=== PATIENT | female | born 1995 | race Caucasian/White ===

== ENCOUNTER 2018-10-15 09:23 | Emergency (ER) | payer MEDICAID ==
[2018-10-15 09:32] VITALS: RESP 20; BMI 24.7
[2018-10-15 11:05] LABS: SQUAMOUS EPITHIAL 3 /hpf (0-5); URINE BILIRUBIN NEGATIVE (NEGATIVE); URINE BLOOD NEGATIVE (NEGATIVE); URINE CLARITY CLEAR (Clear); URINE COLOR STRAW (YELLOW); URINE GLUCOSE (UA) NEG (NEGATIVE); URINE LEUKOCYTE ESTERASE NEG Leu/uL (Negative); URINE PROTEIN NEGATIVE (NEGATIVE); URINE UROBILINOGEN 0.2-1.0 mg/dL (0.2-1.0)
[2018-10-15 11:11] LABS: BASO % 0.4 % (0.0-2.0); EOS % 0.7 % (0.0-4.0); HEMOGLOBIN 11.7 g/dL (12.0-16.0); LYMPH # 1.3 K/uL (1.0-4.3); LYMPH % 30.1 % (20.0-40.0); MEAN CELL VOLUME 93.8 fl (81.0-99.0); MEAN CORPUSCULAR HEMOGLOBIN 31.4 pg (27.0-31.0); MEAN CORPUSCULAR HGB CONC 33.4 g/dL (33.0-37.0); MEAN PLATELET VOLUME 9.1 fl (7.2-11.7); MONO # 0.4 K/uL (0.0-0.8); MONO % 9.5 % (0.0-10.0); NEUT # 2.5 K/uL (1.8-7.0); NEUT % 59.3 % (50.0-75.0); NRBC % 0.1 % (0.0-0.0); RBC 3.72 Mil/uL (3.80-5.20); RED CELL DISTRIBUTION WIDTH 12.8 % (11.5-14.5); WHITE BLOOD COUNT 4.3 K/uL (4.8-10.8)
--- NOTE | 2018-10-15 11:18 | ED PDOC ---
HPI: General Adult Time Seen by Provider: 10/15/18 09:35 Chief Complaint (Nursing): Female Genitourinary Chief Complaint (Provider): Female Genitourinary History Per: Patient History/Exam Limitations: no limitations Onset/Duration Of Symptoms: Days (x2) Additional Complaint(s): Patient is a 23 y/o female with G3:P2 who presents to the ED for repeat labs and US. Patient was initially seen at [facility] two days ago for abdominal pain and a positive test. At that time patient had a normal H&H, a BETA Hcg level at 297. Patient was sent for US which was suspicious for a left-sided ectopic . ED discussed the findings with OBGYN who instructed the patient to come to the [facility] ED for repeat BETA and US in 2 days. Patient complains of minimal left-sided abdominal pain. Patient denies vaginal bleeding. Of note, the patient's LMP was on 09/04/2018. PCP: None Provided Past Medical History Reviewed: Historical Data, Nursing Documentation, Vital Signs Vital Signs: Last Vital Signs Temp 98.4 F 10/15/18 09:31 Pulse 106 H 10/15/18 09:31 Resp 20 10/15/18 09:31 BP 108/61 10/15/18 09:31 Pulse Ox 97 10/15/18 09:31 - Medical History PMH: No Chronic Diseases - Surgical History Surgical History: No Surg Hx - Family History Family History: States: No Known Family Hx - Home Medications Home Medications: Ambulatory Orders Medication Instructions Recorded No Known Home Med 10/12/18 - Allergies Allergies/Adverse Reactions: Allergies Allergy/AdvReac Type Severity Reaction Status Date / Time No Known Allergies Allergy Verified 10/15/18 09:34 Review of Systems ROS Statement: Except As Marked, All Systems Reviewed And Found Negative Gastrointestinal: Positive for: Abdominal Pain (minimal, left-sided) Genitourinary Female: Negative for: Vaginal Bleeding Physical Exam - Reviewed Nursing Documentation Reviewed: Yes Vital Signs Reviewed: Yes - Physical Exam Appears: Positive for: No Acute Distress Head Exam: Positive for: ATRAUMATIC, NORMAL INSPECTION, NORMOCEPHALIC Skin: Positive for: Normal Color, Warm, DRY Eye Exam: Positive for: EOMI, Normal appearance, PERRL Neck: Positive for: Normal, Painless ROM, Supple Cardiovascular/Chest: Positive for: Regular Rate, Rhythm. Negative for: Murmur Respiratory: Positive for: Normal Breath Sounds. Negative for: Respiratory Distress Gastrointestinal/Abdominal: Positive for: Soft, Tenderness (minimal left pelvis). Negative for: Guarding, Rebound Back: Positive for: Normal Inspection. Negative for: L CVA Tenderness, R CVA Tenderness, Vertebral Tenderness Extremity: Positive for: Normal ROM. Negative for: Pedal Edema, Deformity Neurological/Psych: Positive for: Alert, Oriented (x3) - Laboratory Results Result Diagrams: 10/15/18 10:23 10/15/18 10:23 - ECG O2 Sat by Pulse Oximetry: 97 (RA) Pulse Ox Interpretation: Normal Medical Decision Making Medical Decision Making: Time: 1023 Impression: Threatened vs Ectopic Plan: Type and Screen Beta-HCG, Quantitative CMP CBC UA Transvaginal [US] Time: 1205 FINDINGS: UTERUS: Measures 8.1 x 3.8 x 5.7 cm. Normal in size and appearance. No evidence of intrauterine gestation. ENDOMETRIUM: Measures 9 mm in diameter. 9 x 8 x 7 mm echogenic structure within the endometrial canal, possibly representing a polyp. CERVIX: No cervical abnormality identified. RIGHT OVARY: Measures 3.3 x 1.5 x 2.8 cm. No solid mass. Normal flow. LEFT OVARY: Measures 3.5 x 1.9 x 2.8 cm. Corpus luteum measuring 1.3 x 0.9 x 1.5 cm. Normal flow. FREE FLUID: No significant free fluid noted. OTHER FINDINGS: None. IMPRESSION: 9 x 8 x 7 mm echogenic structure within the endometrial canal which might represent endometrial polyp. Sonohysterography can be obtained for further evaluation as clinically warranted. No evidence of intrauterine gestation. Findings may represent early normal/abnormal with ectopic not excluded. Close clinical follow-up with serial pelvic sonography and serum beta HCG levels recommended. 1440: Case discussed with Dr. Banda sourcing consultant front office medical assistant, who evaluated pt. in ED and reviewed pt.'s current US as well as official read from US 10/13/18, cleared for d/c home with strict ectopic precautions. Pt. given ob referrals and she was instructed to return to this ED in 2 days for repeat beta/US. Pt. comfortable with plan. Vitals and labs stable. Discharge exam, abd. soft/nt. Scribe Attestation: Documented by Mark Bernal, acting as a scribe for Neha Brown PA-C. Provider Scribe Attestation: All medical record entries made by the Scribe were at my direction and personally dictated by me. I have reviewed the chart and agree that the record accurately reflects my personal performance of the history, physical exam, medical decision making, and the department course for this patient. I have also personally directed, reviewed, and agree with the discharge instructions and disposition. Disposition - Clinical Impression Clinical Impression: Threatened - Patient ED Disposition Is Patient to be Admitted: No - Disposition Referrals: Anthony Aguilar MD [Staff Provider] - Disposition: Routine/Home Disposition Time: 15:09 Condition: STABLE Additional Instructions: return to this ED in 2 days for repeat beta quant and US. return to ED sooner if increased pain, bleeding or other concerns. Instructions: Threatened Miscarriage (DC) Forms: [employer] (Romanian)
[2018-10-15 11:19] LABS: ALB/GLOB RATIO 1.3 (1.0-2.1); ALBUMIN 4.2 g/dL (3.5-5.0); ALT/SGPT 13 U/L (9-52); AST/SGOT 17 U/L (14-36); BLOOD UREA NITROGEN 7 mg/dl (7-17); CALCIUM 9.3 mg/dL (8.4-10.2); GFR NON-AFRICAN AMERICAN > 60
--- NOTE | 2018-10-15 12:09 | US ---
Date of service: 10/15/2018 HISTORY: r/o ectopic Serum beta HCG level 1139.4 LMP 09/04/2018 COMPARISON: None available. TECHNIQUE: Grayscale, color Doppler and spectral evaluation the pelvis performed transvaginally FINDINGS: UTERUS: Measures 8.1 x 3.8 x 5.7 cm. Normal in size and appearance. No evidence of intrauterine gestation. ENDOMETRIUM: Measures 9 mm in diameter. 9 x 8 x 7 mm echogenic structure within the endometrial canal, possibly representing a polyp. CERVIX: No cervical abnormality identified. RIGHT OVARY: Measures 3.3 x 1.5 x 2.8 cm. No solid mass. Normal flow. LEFT OVARY: Measures 3.5 x 1.9 x 2.8 cm. Corpus luteum measuring 1.3 x 0.9 x 1.5 cm. Normal flow. FREE FLUID: No significant free fluid noted. OTHER FINDINGS: None. IMPRESSION: 9 x 8 x 7 mm echogenic structure within the endometrial canal which might represent endometrial polyp. Sonohysterography can be obtained for further evaluation as clinically warranted. No evidence of intrauterine gestation. Findings may represent early normal/abnormal with ectopic not excluded. Close clinical follow-up with serial pelvic sonography and serum beta HCG levels recommended.
--- NOTE | 2018-10-15 14:53 | CP.PCM.CON ---
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 Pt was recently seen in [place] 10/13/18 due to c/o LLQ pain with 5 positive UPT's, at that time there was a prelim impression of possible ectopic in cul de sac with moderate free pelvic fluid, B HCG on 10/13/18 was 297.91, pt was sent home due to no bleeding and stable vital signs and it was recommended pt to follow up in 48 hours to repeat b hcg and Ultrasound. Pt reports mild LLQ pain without vaginal bleeding. 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: 1NSVD 2013, 1 C section 2016 Ovarian cyst s/p ovarian cystectomy 2014, Denies STI's, LMP 09/04/18, Menarche 11, Regular periods Q 5-6 days, Pmhx: Denies Meds: PNV Allergies: NKDA Surg Hx: ovarian cystectomy 2014, C section 2016 Fhx: Denies Social Hx: Denies tobacco, alcohol, or drug use Review of Systems - Constitutional Constitutional: Fever - Gastrointestinal Gastrointestinal: Abdominal Pain (LLQ) - Reproductive: Female Additional comments: No vaginal bleeding Past Patient History - Past Social History Smoking Status: Never Smoked Alcohol: None Drugs: Denies - CARDIAC Hx Cardiac Disorders: No - GENITOURINARY/GYNECOLOGICAL Hx Genitourinary Disorders: Yes Hx Urinary Tract Infection: Yes Other/Comment: ovarian cyst - 2010 - PSYCHIATRIC Hx Psychophysiologic Disorder: No Hx Substance Use: No - SURGICAL HISTORY Other/Comment: ovarian cyst removal 2010 Meds Allergies/Adverse Reactions: Allergies Allergy/AdvReac Type Severity Reaction Status Date / Time No Known Allergies Allergy Verified 10/15/18 09:34 Physical Exam - Constitutional Appears: Non-toxic, No Acute Distress - Head Exam Head Exam: ATRAUMATIC, NORMAL INSPECTION, NORMOCEPHALIC - Eye Exam Eye Exam: EOMI, Normal appearance - ENT Exam ENT Exam: Mucous Membranes Moist - Respiratory Exam Respiratory Exam: Clear to Auscultation Bilateral. absent: Rales, Rhonchi, Wheezes - Cardiovascular Exam Cardiovascular Exam: RRR, +S1, +S2 - GI/Abdominal Exam GI & Abdominal Exam: Normal Bowel Sounds, Soft. absent: Distended, Guarding, Rebound, Rigid, Tenderness - Extremities Exam Extremities exam: Positive for: normal inspection - Neurological Exam Neurological exam: Alert, Oriented x3 - Psychiatric Exam Psychiatric exam: Normal Mood Results - Vital Signs Recent Vital Signs: Last Vital Signs Temp 98.4 F 10/15/18 09:31 Pulse 106 H 10/15/18 09:31 Resp 20 10/15/18 09:31 BP 108/61 10/15/18 09:31 Pulse Ox 97 10/15/18 12:22 - Labs Result Diagrams: 10/15/18 10:23 10/15/18 10:23 Labs: Laboratory Results - last 24 hr 10/15/18 10/15/18 10/15/18 10:23 10:23 10:23 WBC 4.3 L RBC 3.72 L Hgb 11.7 L Hct 34.9 MCV 93.8 MCH 31.4 H MCHC 33.4 RDW 12.8 Plt Count 188 MPV 9.1 Neut % (Auto) 59.3 Lymph % (Auto) 30.1 [place] % (Auto) 9.5 Eos % (Auto) 0.7 Baso % (Auto) 0.4 Neut # (Auto) 2.5 Lymph # (Auto) 1.3 [place] # (Auto) 0.4 Eos # (Auto) 0.0 Baso # (Auto) 0.0 Sodium 138 Potassium 3.6 Chloride 106 Carbon Dioxide 20 L Anion Gap 16 BUN 7 Creatinine 0.5 L Est GFR ( Amer) > 60 Est GFR (Non-Af Amer) > 60 Random Glucose 102 Calcium 9.3 Total Bilirubin 0.4 AST 17 ALT 13 Alkaline Phosphatase 49 Total Protein 7.5 Albumin 4.2 Globulin 3.2 Albumin/Globulin Ratio 1.3 Beta HCG, Quant 1139.40 Urine Color Straw Urine Clarity Clear Urine pH 7.0 Ur Specific [place] 1.005 Urine Protein Negative Urine Glucose (UA) Neg Urine Ketones Negative Urine Blood Negative Urine Nitrate Negative Urine Bilirubin Negative Urine Urobilinogen 0.2-1.0 Ur Leukocyte Esterase Neg Urine RBC (Auto) 1 Urine Microscopic WBC 1 Ur Squamous Epith Cells 3 Blood Type Antibody Screen BBK History Checked 10/15/18 10:30 WBC RBC Hgb Hct MCV MCH MCHC RDW Plt Count MPV Neut % (Auto) Lymph % (Auto) [place] % (Auto) Eos % (Auto) Baso % (Auto) Neut # (Auto) Lymph # (Auto) [place] # (Auto) Eos # (Auto) Baso # (Auto) Sodium Potassium Chloride Carbon Dioxide Anion Gap BUN Creatinine Est GFR ( Amer) Est GFR (Non-Af Amer) Random Glucose Calcium Total Bilirubin AST ALT Alkaline Phosphatase Total Protein Albumin Globulin Albumin/Globulin Ratio Beta HCG, Quant Urine Color Urine Clarity Urine pH Ur Specific [place] Urine Protein Urine Glucose (UA) Urine Ketones Urine Blood Urine Nitrate Urine Bilirubin Urine Urobilinogen Ur Leukocyte Esterase Urine RBC (Auto) Urine Microscopic WBC Ur Squamous Epith Cells Blood Type O POSITIVE Antibody Screen Negative BBK History Checked No verified bt Assessment & Plan - Assessment and Plan (Free Text) Assessment: Pt is a 23 yo here due to repeat B HCG and TVUS from LLQ pain and Positive UPT Early with mild LLQ Abdominal Pain UPT + 10/13/18 B HCG 297.91, repeat B HCG today 1139.4 (rising) H&H 11.7/34.9 (stable) BP 124/78, HR 78, Afebrile TVUS: [id number] echogenic structure in endometrial canal possible polyp, sonohysterography can be obtained for further eval, No evidence of intrauterine gestation. Findings may represent early normal/abnormal with ectopic not excluded. Close clinical follow up with serial pelvic U/S and Serum B HCG levels recommended Pt to follow up with Dr. Aguilar or Dr. Quiles in 48hrs, gave patient office phone number to call Case reviewed and discussed with Dr. Veronika Jackson PGY1 - Date & Time Date: 10/15/18 Time: 15:59 <Melinda Banda - Last Filed: 10/15/18 16:20> Results - Vital Signs Recent Vital Signs: Last Vital Signs Temp 97.6 F 10/15/18 15:43 Pulse 78 10/15/18 15:43 Resp 20 10/15/18 15:43 BP 124/78 10/15/18 15:43 Pulse Ox 98 10/15/18 15:43 - Labs Result Diagrams: 10/15/18 10:23 10/15/18 10:23 Labs: Laboratory Results - last 24 hr 10/15/18 10/15/18 10/15/18 10:23 10:23 10:23 WBC 4.3 L RBC 3.72 L Hgb 11.7 L Hct 34.9 MCV 93.8 MCH 31.4 H MCHC 33.4 RDW 12.8 Plt Count 188 MPV 9.1 Neut % (Auto) 59.3 Lymph % (Auto) 30.1 [place] % (Auto) 9.5 Eos % (Auto) 0.7 Baso % (Auto) 0.4 Neut # (Auto) 2.5 Lymph # (Auto) 1.3 [place] # (Auto) 0.4 Eos # (Auto) 0.0 Baso # (Auto) 0.0 Sodium 138 Potassium 3.6 Chloride 106 Carbon Dioxide 20 L Anion Gap 16 BUN 7 Creatinine 0.5 L Est GFR ( Amer) > 60 Est GFR (Non-Af Amer) > 60 Random Glucose 102 Calcium 9.3 Total Bilirubin 0.4 AST 17 ALT 13 Alkaline Phosphatase 49 Total Protein 7.5 Albumin 4.2 Globulin 3.2 Albumin/Globulin Ratio 1.3 Beta HCG, Quant 1139.40 Urine Color Straw Urine Clarity Clear Urine pH 7.0 Ur Specific [place] 1.005 Urine Protein Negative Urine Glucose (UA) Neg Urine Ketones Negative Urine Blood Negative Urine Nitrate Negative Urine Bilirubin Negative Urine Urobilinogen 0.2-1.0 Ur Leukocyte Esterase Neg Urine RBC (Auto) 1 Urine Microscopic WBC 1 Ur Squamous Epith Cells 3 Blood Type Antibody Screen BBK History Checked 10/15/18 10:30 WBC RBC Hgb Hct MCV MCH MCHC RDW Plt Count MPV Neut % (Auto) Lymph % (Auto) [place] % (Auto) Eos % (Auto) Baso % (Auto) Neut # (Auto) Lymph # (Auto) [place] # (Auto) Eos # (Auto) Baso # (Auto) Sodium Potassium Chloride Carbon Dioxide Anion Gap BUN Creatinine Est GFR ( Amer) Est GFR (Non-Af Amer) Random Glucose Calcium Total Bilirubin AST ALT Alkaline Phosphatase Total Protein Albumin Globulin Albumin/Globulin Ratio Beta HCG, Quant Urine Color Urine Clarity Urine pH Ur Specific [place] Urine Protein Urine Glucose (UA) Urine Ketones Urine Blood Urine Nitrate Urine Bilirubin Urine Urobilinogen Ur Leukocyte Esterase Urine RBC (Auto) Urine Microscopic WBC Ur Squamous Epith Cells Blood Type O POSITIVE Antibody Screen Negative BBK History Checked No verified bt Assessment & Plan - Assessment and Plan (Free Text) Assessment: OB Hospitalist Addendum: Pt seen and examined. Agree w/ above except that pt was told to return to the ED in 48 hours and given names of OB in [place] for OB f/u. This is a 23 yo w/ LMP 09/04/2018, (5+5 wks GA) w/ LLQ pain w/ HCG 1139 and no evidence of IUP on u/s. On exam, pt appears well, in NAD and abdominal exam is benign. Pt told to f/u in ED in 48 hours and given names of Drs. Aguilar and Kb for OB f/u in [place]. (ES)
[2018-10-15 15:44] VITALS: BP 124/78; PULSE 78; TEMP 97.6; O2SAT 98
== END 2018-10-15 15:44 | disposition home or self-care (01) ==
LOC: H.ER 09:23
DX: O20.0 Threatened abortion (principal)

== ENCOUNTER 2018-10-17 13:09 | Emergency (ER) | payer MEDICAID ==
[2018-10-17 13:09] VITALS: BMI 24.7
[2018-10-17 13:38] VITALS: BP 107/71; PULSE 81; RESP 16; TEMP 98.3; O2SAT 100
--- NOTE | 2018-10-17 14:42 | ED PDOC ---
HPI: General Adult Time Seen by Provider: 10/17/18 13:52 Chief Complaint (Nursing): Abnormal Labs Chief Complaint (Provider): Repeat Labs/ US History Per: Patient History/Exam Limitations: no limitations Onset/Duration Of Symptoms: Days (x4) Current Symptoms Are (Timing): Still Present Additional Complaint(s): 23 year old female presents to the ED for repeat labs and US. Patient was initially seen at [facility] four days ago for abdominal pain and a positive pregna ncy test. At that time patient had a normal H&H, a Beta-HCG level at 297. Patient was sent for US which was suspicious for a left-sided ectopic . ED discussed the findings with OBGYN who instructed the patient to come to the [facility] ED for repeat BETA and US in 2 days. At that time, patient had Beta-HCG of 1139.40 and US which could not rule out an ectopic . She was advised to come back today for repeat Beta-HCG and US. Patient complains of mild pelvic cramping, mostly to the middle. Otherwise, denies vaginal bleeding, vaginal discharge, urinary symptoms, nausea, vomiting, and fever. [facility] 09/04/2018. PMD: none provided Past Medical History Reviewed: Historical Data, Nursing Documentation, Vital Signs Vital Signs: Last Vital Signs Temp 98.3 F 10/17/18 13:37 Pulse 81 10/17/18 13:37 Resp 16 10/17/18 13:37 BP 107/71 10/17/18 13:37 Pulse Ox 100 10/17/18 13:37 - Medical History PMH: No Chronic Diseases - Surgical History Surgical History: No Surg Hx - Family History Family History: States: Unknown Family Hx - Social History Current smoker - smoking cessation education provided: No Alcohol: None Drugs: Denies - Home Medications Home Medications: Ambulatory Orders Medication Instructions Recorded No Known Home Med 10/12/18 - Allergies Allergies/Adverse Reactions: Allergies Allergy/AdvReac Type Severity Reaction Status Date / Time No Known Allergies Allergy Verified 10/17/18 13:37 Review of Systems ROS Statement: Except As Marked, All Systems Reviewed And Found Negative Constitutional: Negative for: Fever Gastrointestinal: Negative for: Nausea, Vomiting Genitourinary Female: Positive for: Pelvic Pain (cramping, mostly to middle). Negative for: Dysuria, Frequency, Incontinence, Hematuria, Vaginal Discharge, Vaginal Bleeding Physical Exam - Reviewed Nursing Documentation Reviewed: Yes Vital Signs Reviewed: Yes - Physical Exam Appears: Positive for: No Acute Distress Head Exam: Positive for: ATRAUMATIC, NORMOCEPHALIC Skin: Positive for: Normal Color, Warm Eye Exam: Positive for: Normal appearance Neck: Positive for: Normal, Painless ROM, Supple Cardiovascular/Chest: Positive for: Regular Rate, Rhythm Respiratory: Positive for: Normal Breath Sounds. Negative for: Respiratory Distress Gastrointestinal/Abdominal: Positive for: Normal Exam, Soft. Negative for: Tenderness (to abomen or pelvis) Back: Positive for: Normal Inspection Extremity: Positive for: Normal ROM (all extremities) Neurological/Psych: Positive for: Awake, Alert, Oriented (x3) - Laboratory Results Result Diagrams: 10/17/18 14:00 - ECG O2 Sat by Pulse Oximetry: 100 (RA) Pulse Ox Interpretation: Normal Medical Decision Making Medical Decision Making: Time: 1350 Initial Impression: repeat labs / US Initial Plan: --Beta-HCG quant --OB transvag US --After results come back, will place consult to core shaper assistant commissioner 1554 US FINDINGS: UTERUS: Measures 8.1 x 4.3 x 3.9 cm. Uterus is mildly enlarged, anteverted heterogeneous endometrial pattern. No suspicious myometrial lesion appreciable. ENDOMETRIUM: Measures 19.1 mm in diameter. Overall endometrium is heterogeneous without definite gestational sac within the endometrial cavity. A tiny echo poor focus of only 1.5 mm is appreciated within the endometrium which is nonspecific. CERVIX: No cervical abnormality identified. RIGHT OVARY: Measures 2.9 x 2.1 x 1.5 cm. A small hyperechoic area measures 0.5 x 0.6 x 0.6 cm and is nonspecific in appearance could reflect a complex cyst or small focal hemorrhage. Normal flow. LEFT OVARY: Measures 3.6 x 2.9 x 2.1 cm with complex cyst or solid nodule measuring 2.2 x 1.3 x 2.2 cm. There is a limited amount of peritoneal fluid with debris identified in the left adnexal compartment as well as a thin rimmed cystic structure measure 1.1 x 0.9 x 1.0 cm of uncertain origin. This may represent a cyst tiny paraovarian cyst but no pole yolk sac is seen associated. Normal flow. OTHER FINDINGS: None. IMPRESSION: Abnormal thickened endometrium is appreciate which is heterogeneous with a 1.4 mm echo lucency potentially reflective of a cyst. A definitive gestational sac or intrauterine gestation is not identified. Ectopic gestation not proven or excluded consider possible early intrauterine gestation not currently visible sonographically. Possible sub cm hemorrhagic cyst central right ovary with a complex cyst or nodule 2.2 cm at the left ovary. 1.1 cm possible left paraovarian cyst. Clinical follow-up by serial beta HCG analysis is advised as well as one-week follow-up transvaginal pelvic ultrasonography. 1615 Beta-HCG quant at 3425.10. US shows thickened endometrium from 9mm to 19.1mm. Case discussed with Dr. Winn who recommends placing obgyn consult. [address] Pittman who recommends doing a pelvic exam and ordering LFTs. Discussed findings and plan with patient who is agreeable. 1650 Pelvic exam performed by me with jonathan Woody. Patient tolerated examination well. Findings: cervical os closed; moderate amount of non-odorous discharge noted; non-erythematous; non-tender mass felt to left side, right side unremarkable; no cervical tenderness. Pending LFTs before calling back Dr. Pittman. 1700 OB resident is at bedside to evaluate patient with Dr. Pittman. 1730 Dr. Pittman spoke to patient and informed her that this is most likely an ectopic , and advises to take methotrexate. Patient became very upset and is refusing the methotrexate, stating she wants to go home and think about it. Patient educated on the risks of leaving AMA by Dr. Pittman and myself, including po tential internal bleeding and possible . Patient states she understands and still wishes to leave. Discussed return parameters such as increased pelvic pain and vaginal bleeding. She verbalized understanding again, and signed out AMA with Annalise ALEXIS as witness. Scribe Attestation: Documented by Mary Jane Guadalupe, acting as a scribe for Pao Weaver APN. Provider Scribe Attestation: All medical record entries made by the Scribe were at my direction and personally dictated by me. I have reviewed the chart and agree that the record accurately reflects my personal performance of the history, physical exam, medical decision making, and the department course for this patient. I have also personally directed, reviewed, and agree with the discharge instructions and disposition. Disposition - Clinical Impression Clinical Impression: Threatened - Disposition Disposition: Against Medical Advice Disposition Time: 17:33 Condition: STABLE Additional Instructions: Return to ED immediately if pelvic pain increases or develop vaginal bleeding. Instructions: Threatened Miscarriage Print Language: CAMEROONIAN - POA Present On Arrival: None
--- NOTE | 2018-10-17 15:59 | US ---
Date of service: 10/17/2018 HISTORY: r/o etopic preg COMPARISON: None available. TECHNIQUE: Transabdominal and transvaginal pelvic ultrasound was performed with longitudinal and transverse images submitted for interpretation. FINDINGS: UTERUS: Measures 8.1 x 4.3 x 3.9 cm. Uterus is mildly enlarged, anteverted heterogeneous endometrial pattern. No suspicious myometrial lesion appreciable. ENDOMETRIUM: Measures 19.1 mm in diameter. Overall endometrium is heterogeneous without definite gestational sac within the endometrial cavity. A tiny echo poor focus of only 1.5 mm is appreciated within the endometrium which is nonspecific. CERVIX: No cervical abnormality identified. RIGHT OVARY: Measures 2.9 x 2.1 x 1.5 cm. A small hyperechoic area measures 0.5 x 0.6 x 0.6 cm and is nonspecific in appearance could reflect a complex cyst or small focal hemorrhage. Normal flow. LEFT OVARY: Measures 3.6 x 2.9 x 2.1 cm with complex cyst or solid nodule measuring 2.2 x 1.3 x 2.2 cm. There is a limited amount of peritoneal fluid with debris identified in the left adnexal compartment as well as a thin rimmed cystic structure measure 1.1 x 0.9 x 1.0 cm of uncertain origin. This may represent a cyst tiny paraovarian cyst but no pole yolk sac is seen associated. Normal flow. OTHER FINDINGS: None. IMPRESSION: Abnormal thickened endometrium is appreciate which is heterogeneous with a 1.4 mm echo lucency potentially reflective of a cyst. A definitive gestational sac or intrauterine gestation is not identified. Ectopic gestation not proven or excluded consider possible early intrauterine gestation not currently visible sonographically. Possible sub cm hemorrhagic cyst central right ovary with a complex cyst or nodule 2.2 cm at the left ovary. 1.1 cm possible left paraovarian cyst. Clinical follow-up by serial beta HCG analysis is advised as well as one-week follow-up transvaginal pelvic ultrasonography.
[2018-10-17 17:42] LABS: ALB/GLOB RATIO 1.3 (1.0-2.1); ALBUMIN 4.5 g/dL (3.5-5.0); ALT/SGPT 23 U/L (9-52); AST/SGOT 38 U/L (14-36); BLOOD UREA NITROGEN 8 mg/dl (7-17); CALCIUM 9.6 mg/dL (8.4-10.2); GFR NON-AFRICAN AMERICAN > 60
--- NOTE | 2018-10-17 17:49 | CP.PCM.CON ---
History of Present Illness - History of Present Illness History of Present Illness: 23 YO female presenting to the ED to repeat labs and Transvaginal US after she was found to have an elevation of Beta-HCG with negative IUP on a transvaginal US 2 days ago. Patient reports she was initially seen at [facility] on 10/13/18 with c/o LLQ mild abdominal pain and a positive urine T, at that time her Beta-HCG level was 297 and vaginal US did not show a IUP and patient was sent home with instructions to follow up repeat beta-HCG in 48 hours and repeat US. Patient returned for repeat labs and evaluation to [facility] on 10/15/18 (2 days ago) and her Beta-HCG was 1139.40 rising from previous level with no evidence of IUP on US and ectopic could not be ruled out. Patient was instructed to f/u today with repeat Beta-HCG and transvaginal US. Patient today complains of occasional mild pelvic crampy pain to the LLQ, states that compared to 4 days ago her pain is almost resolved, she only endorses feeling some mild nausea. Patient otherwise denies vaginal bleeding, discharge, vomiting, dysuria, fever, palpitations, or any other acute medical complaint at present. 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 hx: 1NSVD 2013, 1 C section 2016 Ovarian cyst s/p ovarian cystectomy 2014, Denies STI's, LMP 09/04/18, Menarche 11, Regular periods Q 5-6 days PMD: not provided PMHx: Denies FMHx: Denies Meds: None Allergies: NKDA Surg Hx: ovarian cystectomy 2014, C section 2016 Social Hx: Denies tobacco, alcohol, or drug use Past Patient History - Past Social History Alcohol: None Drugs: Denies - CARDIAC Hx Cardiac Disorders: No - GENITOURINARY/GYNECOLOGICAL Hx Genitourinary Disorders: Yes Hx Urinary Tract Infection: Yes Other/Comment: ovarian cyst - 2010 - PSYCHIATRIC Hx Psychophysiologic Disorder: No Hx Substance Use: No - SURGICAL HISTORY Other/Comment: ovarian cyst removal 2011 Meds Allergies/Adverse Reactions: Allergies Allergy/AdvReac Type Severity Reaction Status Date / Time No Known Allergies Allergy Verified 10/17/18 13:37 Physical Exam - Head Exam Head Exam: NORMOCEPHALIC - Eye Exam Eye Exam: EOMI - ENT Exam ENT Exam: Mucous Membranes Moist - Respiratory Exam Respiratory Exam: Clear to Auscultation Bilateral - Cardiovascular Exam Cardiovascular Exam: REGULAR RHYTHM, +S1, +S2 - GI/Abdominal Exam GI & Abdominal Exam: Soft. absent: Mass, Tenderness - Exam Additional comments: Pelvic exam declined by patient at this time. - Neurological Exam Neurological exam: Alert - Skin Skin Exam: Normal Color, Warm Results - Vital Signs Recent Vital Signs: Last Vital Signs Temp 98.3 F 10/17/18 13:37 Pulse 81 10/17/18 13:37 Resp 16 10/17/18 13:37 BP 107/71 10/17/18 13:37 Pulse Ox 100 10/17/18 17:41 - Labs Result Diagrams: 10/17/18 14:00 Labs: Laboratory Results - last 24 hr 10/17/18 14:00 Sodium 136 Potassium 3.9 Chloride 103 Carbon Dioxide 22 Anion Gap 15 BUN 8 Creatinine 0.5 L Est GFR ( Amer) > 60 Est GFR (Non-Af Amer) > 60 Random Glucose 84 Calcium 9.6 Total Bilirubin 0.5 AST 38 H D ALT 23 Alkaline Phosphatase 58 Total Protein 7.9 Albumin 4.5 Globulin 3.5 Albumin/Globulin Ratio 1.3 Beta HCG, Quant 3425.10 Assessment & Plan - Assessment and Plan (Free Text) Assessment: 23 YO female with LMP 09/04/18 who presents today to the ED for follow up repeat Beta-HCG and transvaginal US due to suspicious ectopic . 10/13/18 Beta-HCG 297.91, repeat 10/15/18 Beta-HCG 1139.4, and today Beta-HCG 3425.10 revealed steady rising levels. Transvaginal US today shows that definitive gestational sac is not identified. Ectopic gestation not proven or excluded. Possible sub cm hemorrhagic cyst central right ovary with a complex cyst or nodule 2.2 cm at the left ovary 1.1 cm possible left paraovarian cyst. Final impression: All findings consistent with Ectopic Patient is seen with attending Dr Pittman at bedside, at this point she was recommended to take a Methotrexate treatment protocol and continue f/u. Patient refuses to take Methotrexate and states she wants to go home and think about it before taking a decision. Patient was advised by me and Dr Pittman on the risks of leaving AMA and refusing treatment at this time, including rupture of the ectopic , internal bleeding and even possible . Patient verbalizes understanding. ED precautions given to patient: Return to the ED at any time for treatment or if she has abdominal pain, vaginal bleeding, weakness or any other new symptom or concerns presents. Case seen and discussed with attending Dr Pittman.
== END 2018-10-17 18:26 | disposition home or self-care (01) ==
LOC: H.ER 13:09
DX: O20.0 Threatened abortion (principal); R93.89 Abnormal findings on diagnostic imaging of other specified body structures